=== PATIENT | male | born 1985 | race African-American/Black ===

== ENCOUNTER 2017-05-27 19:45 | Emergency (ER) | payer BC ==
[~2017-05-27] VITALS: Ht 185.4 cm; Wt 95.5 kg
[~2017-05-27 19:45] MED LIST: DICL75 PO; IBUP-232 PO; ROBA750T3 PO
[2017-05-27 19:47] VITALS: BP 154/79; PULSE 68; RESP 16; TEMP 99.4; O2SAT 99
[2017-05-27] MEDS ORDERED: OSEL75 PO (19:59)
--- NOTE | 2017-05-27 20:02 | PD ---
HPI Chief Complaint: Cold / Flu Symptoms Time Seen by Provider: 19:57 Travel History International Travel<30 days: No Contact w/Intl Traveler<30days: No Traveled to known affect area: No History of Present Illness HPI 31-year-old male presents for evaluation. For 2 days he's had congestion, sinus pressure and sneezing. Today he developed chills, fevers as high as 100.5 . There was a slight associated cough and sore throat. Denies rash, recent travel, abdominal pain, nausea or vomiting. No aggravating or relieving factors. No other complaints. PFSH Past Surgical History Other Surgery: Yes (nasal surgery) Social History Alcohol Use: Yes Tobacco Use: Yes Substance Use: No Allergies-Medications (Allergen,Severity, Reaction): Coded Allergies: No Known Allergies (Unverified , 07/01/14) Reported Meds & Prescriptions Reported Meds & Active Scripts Active Tamiflu (Oseltamivir Phosphate) 75 Mg Cap 75 Mg PO BID [address] (Diclofenac Sod) 75 Mg Tab 75 Mg PO BID PRN Robaxin-750 (Methocarbamol) 750 Mg Tab 750 Mg PO Q8 PRN FOR PAIN Motrin (Ibuprofen) 600 Mg Tab 600 Mg PO Q6 PRN Review of Systems Except as stated in HPI: all other systems reviewed are Neg Physical Exam Narrative GENERAL: Well-nourished male in no acute distress SKIN: Warm and dry. HEAD: Atraumatic. Normocephalic. EYES: Pupils equal and round. No scleral icterus. No injection or drainage. ENT: No nasal bleeding or discharge. Mucous membranes pink and moist. NECK: Trachea midline. No JVD. CARDIOVASCULAR: Regular rate and rhythm. No murmur appreciated. RESPIRATORY: No accessory muscle use. Clear to auscultation. Breath sounds equal bilaterally. Data Data Last Documented VS Vital Signs Date Time Temp Pulse Resp B/P (MAP) Pulse Ox O2 Delivery O2 Flow Rate FiO2 05/27/17 19:47 99.4 68 16 154/79 (104) 99 Orders Orders Ed Discharge Order (05/27/17 20:15) Influenzae A/B Antigen (05/27/17 20:16) MDM Medical Decision Making Medical Screen Exam Complete: Yes Emergency Medical Condition: Yes Medical Record Reviewed: Yes Differential Diagnosis Influenza, sinusitis, bronchitis, pneumonia Narrative Course His examination and history of the most consistent with influenza. He will be prescribed Tamiflu. Prior to discharge influenza antigen testing was requested and this was performed. It is negative however with the sensitivity of influenza antigen testing pain 60-70% and his abrupt onset of fevers and chills , his symptoms are still most consistent with influenza. The prescription for Tamiflu will be provided and he understands to start as soon as possible if he decides to take it. He is stable for discharge. Diagnosis Primary Impression: Upper respiratory infection Departure Forms: Tests/Procedures, Work Release Enter return to work date: May 30, 2017 Additional Instructions: Medication as prescribed. Tylenol or Motrin for fever. Stay well hydrated and well-nourished, get plenty of rest. Return for any emergent medical conditions. Med/Other Pt SpecificInfo: Prescription(s) given Scripts Oseltamivir (Tamiflu) 75 Mg Cap 75 MG PO BID for Mgmt Viral Infection for 5 Days, #10 CAP 0 Refills Prov: Toño Whiteside MD 05/27/17 Disposition: 01 DISCHARGE HOME Condition: Stable Roberto Starr May 27, 2017 20:01
== END 2017-05-27 20:55 | disposition home or self-care (01) ==
LOC: NEPK 19:45
DX: J06.9 Acute upper respiratory infection, unspecified (principal); Z72.0 Tobacco use
CPT/HCPCS: 87804; 99283

== ENCOUNTER 2017-11-23 20:56 | Observation (INO) ==
--- NOTE | 2017-11-23 22:02 | ED ---
HPI General Chief Complaint: Chest Pain Stated Complaint: chest pain Time Seen by Provider: 11/23/17 21:40 Source: patient, family and RN notes reviewed Mode of arrival: ambulatory Limitations: no limitations History of Present Illness HPI narrative: 32-year-old male presents to the emergency department for evaluation of left-sided chest pain that started 2 days ago, but became constant today. Patient reports the pain is 9/10 to the left chest without radiation. He is unsure if he has associated shortness of breath. Patient states that movement and deep breathing will worsen the pain. He denies any leg edema. No hemoptysis. No history DVT or PE. No recent surgery or travel. Patient denies any medical problems. He takes no prescribed medications. He did take a full aspirin today. Patient does report that his mother and father both have cardiac history. He denies any family history of sudden cardiac before the age of 40. He is a current tobacco user. Moderate severity. MD complaint: chest pain Complete Quality Measures for STEMI Alert Patients STEMI Alert: No Duration: constant Pain location: left chest Severity: moderate Severity scale (1-10): 9 Quality: aching Pain radiation: none Relieving factors: nothing Exacerbating factors: movement Treatments prior to arrival chest pain: aspirin Related Data Home Medications Medication Instructions Recorded Confirmed ibuprofen 1,200 mg PO DAILY 11/23/17 11/23/17 Allergies Allergy/AdvReac Type Severity Reaction Status Date / Time No Known Allergies Allergy Verified 11/23/17 21:06 Review of Systems ROS: all other systems reviewed are negative PMFSH Medical History Medical History Patient denies medical problems (Acute) Surgical History Surgical History History of nasal surgery (Acute) Social History Social History Substance History: No History of Abuse Smoking Status: Current every day smoker Tobacco Type: Cigarettes How Often Do You Have a Drink Containing Alcohol: 2 to 3 times a week Recent Travel in [facility] within the Last 8 Weeks: No Recent Out of Country Travel within the Last 8 Weeks: No Immunization History Tetanus Immunization: Unsure Hx Influenza Vaccine This Season: No Exam Narrative Exam Narrative: GENERAL: Well-nourished, well-developed male patient, afebrile SKIN: Focused skin assessment warm/dry. HEAD: Normocephalic. Atraumatic EYES: No scleral icterus. No injection or drainage. NECK: Supple, trachea midline. No JVD or lymphadenopathy. CARDIOVASCULAR: Regular rate and rhythm without murmurs, gallops, or rubs. Bilateral radial and pedal pulses 2+ RESPIRATORY: Breath sounds equal bilaterally. No accessory muscle use. Lung sounds are clear to auscultation GASTROINTESTINAL: Abdomen soft, non-tender, nondistended. MUSCULOSKELETAL: No cyanosis, or edema. BACK: Non obvious deformity. Course Initial Documented Vital Signs Temperature 98.0 F 11/23/17 21:06 Pulse Rate 69 11/23/17 21:06 Respiratory Rate 18 11/23/17 21:06 Blood Pressure 182/80 H 11/23/17 21:06 Pulse Oximetry 100 11/23/17 21:06 Last Documented Vital Signs Temperature 98.0 F 11/23/17 21:06 Pulse Rate 52 L 11/24/17 00:10 Respiratory Rate 18 11/24/17 00:10 Blood Pressure 136/76 11/24/17 00:10 Pulse Oximetry 99 11/24/17 00:10 Medical Decision Making JUAN C Attestation JUAN C supervised visit: Yes Attestation: I, Dr. Piedra, have reviewed the advance practice practitioner's documentation and am in agreement, met with the patient face to face, made the diagnosis, and the medical decision making was done by me. *My assessment and Findings: 32-year-old male presents to the emergency department for intermittent left-sided chest pain with some radiation to the left upper extremity since yesterday. Patient has history of tobacco use and premature onset heart disease in his father and mother. Patient denies personal history of hypertension dyslipidemia or diabetes. Patient states he typically uses much ibuprofen on a routine basis for muscle related pains but that the ibuprofen provided no relief or chest wall pain/chest pain. Patient has been evaluated in the past for similar type chest wall pain in the past but this was more intense and longer lives. Patient rates his discomfort 8/10 in intensity. Patient admits to tobacco use a pack per day. Patient also reports rare/occasional alcohol use. I agree with evaluation and workup and was initiated and provided by MARIANA. Physical exam reveals no acute focality and chest wall is not reproducibly tender. Specimens collected and sent for resulting patient placed on surveillance system monitor with continuous pulse oximetry patient given aspirin and sublingual nitroglycerin Patient with good response to sublingual nitroglycerin also identified to have normal d-dimer less than 0.5 and also identified to have normal first set of cardiac enzymes patient did respond to nitroglycerin with decrease chest pain no response to nonsteroidal anti-inflammatory medication Toradol. Discussed with patient risk factors for cardiac disease and agrees to admission for observation to chest pain center per protocol MDM Narrative Medical decision making narrative: 32-year-old male presents to the emergency department for evaluation of left-sided chest pain started 2 days ago, worsened today. EKG shows sinus rhythm, heart rate 60, no acute ST changes. CBC, BMP, magnesium, CK, troponin, PTT, PT/INR, chest x-ray ordered and pending. CBC is unremarkable. BMP shows elevated BUN of 19, hyperglycemia of 190. CK is 127. Troponin is less than 0.02. Magnesium is 1.7. PTT is 25.7. PT/INR is 11.4/1.1. Chest x-ray shows the lungs are clear. Patient is given nitro SL , NS 1 L IV bolus, ketorolac 30 mg IV. D-dimer is added on. Troponin will be repeated in 3 hours from first draw. My attending physician, Dr. Piedra, will resume care and disposition of patient. Medical Screen Exam Complete: Yes Emergency Medical Condition: Yes Differential Diagnosis Differential Diagnosis: ACS vs. chest wall pain vs. anxiety vs. pneumonia vs. pneumothorax Medical Records Medical records reviewed: Yes I reviewed the patient's medical records. Lab Data Result diagrams: 11/23/17 21:58 11/23/17 21:58 Lab Results 11/23/17 11/23/17 11/23/17 Range/Units 21:58 21:58 21:58 WBC 9.3 (4.0-11.0) th/mm3 RBC 5.12 (4.50-5.90) mil/mm3 Hgb 15.6 (13.0-17.0) gm/dL Hct 45.6 (39.0-51.0) % MCV 89.1 (80.0-100.0) fL MCH 30.4 (27.0-34.0) pg MCHC 34.1 (32.0-36.0) % RDW 12.7 (11.6-17.2) % Plt Count 196 (150-450) th/mm3 MPV 9.1 (7.0-11.0) fL Neut % (Auto) 57.8 (16.0-70.0) % Lymph % (Auto) 33.0 (9.0-44.0) % [place] % (Auto) 6.2 (0.0-8.0) % Eos % (Auto) 2.1 (0.0-4.0) % Baso % (Auto) 0.9 (0.0-2.0) % Neut # (Auto) 5.4 (1.8-7.7) th/mm3 Lymph # (Auto) 3.1 (1.0-4.8) th/mm3 [place] # (Auto) 0.6 (0.0-0.9) th/mm3 Eos # (Auto) 0.2 (0.0-0.4) th/mm3 Baso # (Auto) 0.1 (0.0-0.2) th/mm3 WBC Differential . Differential Comment Auto diff final PT 11.4 (9.8-11.6) sec INR 1.1 Ratio APTT 25.7 (24.3-30.1) sec D-Dimer Quant (PE/DVT) (0.00-0.50) mg/L FEU Sodium 139 (136-145) meq/L Potassium 3.6 (3.5-5.1) meq/L Chloride 104 (98-107) meq/L Carbon Dioxide 26.1 (21.0-32.0) meq/L Anion Gap 9 (5-15) meq/L BUN 19 H (7-18) mg/dL Creatinine 1.11 (0.60-1.30) mg/dL Estimated GFR Greater than 89 (>89) mL/min Random Glucose 190 H (74-106) mg/dL Calcium 9.0 (8.5-10.1) mg/dL Magnesium 1.7 (1.5-2.5) mg/dL Total Creatine Kinase 127 (39-308) U/L CK-MB (CK-2) 2.1 (0.5-3.6) ng/mL Troponin I Less than 0.02 L (0.02-0.05) ng/mL 11/23/17 Range/Units 21:58 WBC (4.0-11.0) th/mm3 RBC (4.50-5.90) mil/mm3 Hgb (13.0-17.0) gm/dL Hct (39.0-51.0) % MCV (80.0-100.0) fL MCH (27.0-34.0) pg MCHC (32.0-36.0) % RDW (11.6-17.2) % Plt Count (150-450) th/mm3 MPV (7.0-11.0) fL Neut % (Auto) (16.0-70.0) % Lymph % (Auto) (9.0-44.0) % [place] % (Auto) (0.0-8.0) % Eos % (Auto) (0.0-4.0) % Baso % (Auto) (0.0-2.0) % Neut # (Auto) (1.8-7.7) th/mm3 Lymph # (Auto) (1.0-4.8) th/mm3 [place] # (Auto) (0.0-0.9) th/mm3 Eos # (Auto) (0.0-0.4) th/mm3 Baso # (Auto) (0.0-0.2) th/mm3 WBC Differential Differential Comment PT (9.8-11.6) sec INR Ratio APTT (24.3-30.1) sec D-Dimer Quant (PE/DVT) 0.47 (0.00-0.50) mg/L FEU Sodium (136-145) meq/L Potassium (3.5-5.1) meq/L Chloride (98-107) meq/L Carbon Dioxide (21.0-32.0) meq/L Anion Gap (5-15) meq/L BUN (7-18) mg/dL Creatinine (0.60-1.30) mg/dL Estimated GFR (>89) mL/min Random Glucose (74-106) mg/dL Calcium (8.5-10.1) mg/dL Magnesium (1.5-2.5) mg/dL Total Creatine Kinase (39-308) U/L CK-MB (CK-2) (0.5-3.6) ng/mL Troponin I (0.02-0.05) ng/mL Imaging Data Radiologist's impression: Chest X-Ray 11/23/17 21:53 CONCLUSION: The lungs are clear. Discharge Plan Discharge Disposition Patient Disposition: 30 Still Patient Physicians Team ED Provider: Salter,Lisa H ED Midlevel Provider: Julita Kim Primary Care Provider: UNKNOWN, Rxs /Orders / Referrals /Forms Prescriptions: No Action ibuprofen 600 mg Tablet 1,200 mg PO DAILY RF: 0 Status ED Status: With Doctor
[2017-11-23 22:04] LABS: Baso # (Auto) 0.1 th/mm3 (0.0-0.2); Baso % (Auto) 0.9 % (0.0-2.0); Eos # (Auto) 0.2 th/mm3 (0.0-0.4); Eos % (Auto) 2.1 % (0.0-4.0); Hematocrit 45.6 % (39.0-51.0); Hemoglobin 15.6 gm/dL (13.0-17.0); Lymph # (Auto) 3.1 th/mm3 (1.0-4.8); Mean Corpuscular HGB Conc 34.1 % (32.0-36.0); Mean Corpuscular Hemoglobin 30.4 pg (27.0-34.0); Mean Corpuscular Volume 89.1 fL (80.0-100.0); Mean Platelet Volume 9.1 fL (7.0-11.0); Mono # (Auto) 0.6 th/mm3 (0.0-0.9); Mono % (Auto) 6.2 % (0.0-8.0); Neut # (Auto) 5.4 th/mm3 (1.8-7.7); Neut % (Auto) 57.8 % (16.0-70.0); Platelet Count 196 th/mm3 (150-450); Red Blood Count 5.12 mil/mm3 (4.50-5.90); Red Cell Distribution Width 12.7 % (11.6-17.2); White Blood Count 9.3 th/mm3 (4.0-11.0)
[2017-11-23 22:14] LABS: Activated Partial Thrombo Time 25.7 sec (24.3-30.1); INR 1.1 Ratio; Prothrombin Time 11.4 sec (9.8-11.6)
[2017-11-23 22:26] LABS: Anion Gap 9 meq/L (5-15); Blood Urea Nitrogen 19 mg/dL (7-18); Carbon Dioxide 26.1 meq/L (21.0-32.0); Chloride 104 meq/L (98-107); Glomerular Filtration Rate Greater Than 89 mL/min (>89); Glucose,Random 190 mg/dL (74-106); Magnesium 1.7 mg/dL (1.5-2.5); Sodium 139 meq/L (136-145)
[2017-11-23] MEDS ORDERED: Sod Chloride 0.9% Inj 1,000 ML IV.SIG ONE (22:26)
[2017-11-23] MEDS ORDERED: Ketorolac Inj 30 MG/ML (IVP) Vial IV.PUSH ONE (22:27)
[2017-11-23 22:30] LABS: Creatine Kinase 127 U/L (39-308)
[2017-11-23 22:31] LABS: Potassium 3.6 meq/L (3.5-5.1)
[2017-11-23 22:43] LABS: Creatine Kinase MB 2.1 ng/mL (0.5-3.6)
--- NOTE | 2017-11-23 22:51 | XR ---
EXAM DATE: 11/23/2017 10:41 PM EDT AGE/SEX: 32 years / Male INDICATIONS: Chest pain. CLINICAL DATA: This is the patient's initial encounter. Patient reports that signs and symptoms have been present for 2 days and indicates a pain score of 9/10. MEDICAL/SURGICAL HISTORY: None. None. COMPARISON: [facility] [place], CHEST PA & LAT, 11/09/2014. . FINDINGS: A single AP view of the chest demonstrates the lungs to be symmetrically aerated without evidence of mass, infiltrate or effusion. The cardiomediastinal contours are unremarkable. Osseous structures a re intact. CONCLUSION: The lungs are clear. Electronically signed by: Brayan Pineda MD 11/23/2017 10:50 PM EDT
[2017-11-24 01:43] LABS: Creatine Kinase 100 U/L (39-308)
[2017-11-24 05:09] LABS: Creatine Kinase 87 U/L (39-308)
--- NOTE | 2017-11-24 07:38 | P.HPCA ---
History of Present Illness Primary Care Physician: None Chief Complaint: Chest pain History of Present Illness: 32 year old male current smoker presents to ER for further evaluation of chest pain. Onset yesterday morning. Location left anterior chest. Characterized as "ache." Mild to moderate in severity. No radiation. Duration all day eating discomfort was "just there." No associated symptoms of nausea, vomiting , dyspnea, or diaphoresis. No precipitating factors. Relieving factors included activity, "sitting made discomfort tolerable." Denies similar pain in the past. Last evening developed bilateral hands and fingertip tingling. encouraged him to come the ER for further evaluation. No known significant past medical history. No recent illness or injury. Family history positive for early onset cardiovascular disease. Father [place] in his early 40s. No past cardiac testing. - Diagnosis (1) Atypical chest pain (2) Tobacco abuse (3) Elevated serum glucose Review of Systems All other systems reviewed negative except as stated in HPI PMFSH - History History Provided By: Patient, Family Member - Medical History Medical History: Medical History (Last Reviewed 11/24/17 @ 08:44 by LINDA Bone) Patient denies medical problems - Surgical History Surgical History: Surgical History (Last Reviewed 11/24/17 @ 08:44 by LINDA Bone) History of nasal surgery - Family History Family History: Family History (Last Updated 11/24/17 @ 08:46 by LINDA Bone) Father Coronary artery disease Mother Takotsubo syndrome - Tobacco History Tobacco Use In Past 30 Days: Yes Smoking Status: Current every day smoker Tobacco Type: Cigarettes Packs Per Day: 1 - Alcohol History How Often Do You Have a Drink Containing Alcohol: 2 to 3 times a week - Substance Use History Substance History: No History of Abuse - Travel History Recent Travel in the [place] Within the Last 8 Weeks: No Recent Travel Out of the Country Within the Last 8 Weeks: No - Immunization History Tetanus Immunization: Unsure Hx Influenza Vaccine This Season: No Medications and Allergies Active Medications: Active Medications Sodium Chloride (Ns Flush) 2 ml IV.FLUSH UNSCH PRN PRN Reason: FLUSH AFTER USING IV ACCESS Sodium Chloride (Ns Flush) 2 ml IV.FLUSH BID ALMA Sodium Chloride (Ns Flush) 2 ml IV.FLUSH PRN PRN PRN Reason: FLUSH AFTER USING IV ACCESS Allergies Allergy/AdvReac Type Severity Reaction Status Date / Time No Known Allergies Allergy Verified 11/23/17 21:06 Home Medications Medication Instructions Recorded Confirmed Type ibuprofen 1,200 mg PO DAILY 11/23/17 11/23/17 History Exam Vital signs: Vital Signs 11/23/17 21:06 11/23/17 22:00 11/24/17 00:10 Temperature 98.0 F Pulse Rate 69 52 L Respiratory Rate 18 18 Blood Pressure 182/80 H 136/76 Pulse Oximetry 100 98 99 11/24/17 03:39 11/24/17 07:33 Temperature 98.0 F 98.0 F Pulse Rate 48 L 62 Respiratory Rate 22 18 Blood Pressure 132/86 141/89 H Pulse Oximetry 99 98 Intake & Output 11/23/17 11/24/17 11/24/17 18:59 06:59 18:59 Intake Total 1000 / 1000 Balance 1000 / 1000 Weight 92.986 kg Intake: IV 1000 / 1000 NS Inj 1,000 ML @ Wide Open IV. 1000 / 1000 SIG BOLUS ONE Rx#:[id number] Narrative: GENERAL: Alert WN, WD, NAD, pleasant, -[place] male HEAD: NC, AT EYES: Sclera clear, conjunctiva without injection, pupils equal and round ENT: Mucous membranes pink and moist NECK: Supple, no masses, trachea midline CV: RRR, without murmur, rub, or gallop. RESP: Clear lungs throughout bilateral, no crackles, wheeze, rhonchi, symmetrical chest rise, nonlabored, able to speak in full sentences ABD: Soft, NT, ND, no masses, positive bowel tones EXT: Pulses +2x4, no dependent edema MS: Normal tone x4 extremities, nontender, no obvious deformities, full range of motion NEURO: CN II through CN XII grossly intact, motor strength 5/5 PSYCH: A+O x3, pleasant affect, appropriate speech, mood, insight and judgment SKIN: Normal turgor, normal texture, no lesions, no rashes, brisk cap refill, even hair distribution Results 11/23/17 21:58 11/23/17 21:58 Cardiac Enzymes 11/23/17 11/24/17 11/24/17 Range/Units 21:58 01:00 04:37 CK-MB (CK-2) 2.1 (0.5-3.6) ng/mL Troponin I Less than 0.02 L Less than 0.02 L Less than 0.02 L (0.02-0.05) ng/mL Coagulation 11/23/17 Range/Units 21:58 PT 11.4 (9.8-11.6) sec APTT 25.7 (24.3-30.1) sec CBC 11/23/17 Range/Units 21:58 WBC 9.3 (4.0-11.0) th/mm3 RBC 5.12 (4.50-5.90) mil/mm3 Hgb 15.6 (13.0-17.0) gm/dL Hct 45.6 (39.0-51.0) % Plt Count 196 (150-450) th/mm3 Neut # (Auto) 5.4 (1.8-7.7) th/mm3 Lymph # (Auto) 3.1 (1.0-4.8) th/mm3 [place] # (Auto) 0.6 (0.0-0.9) th/mm3 Eos # (Auto) 0.2 (0.0-0.4) th/mm3 Baso # (Auto) 0.1 (0.0-0.2) th/mm3 Comprehensive Metabolic Panel 11/23/17 Range/Units 21:58 Sodium 139 (136-145) meq/L Potassium 3.6 (3.5-5.1) meq/L Chloride 104 (98-107) meq/L Carbon Dioxide 26.1 (21.0-32.0) meq/L BUN 19 H (7-18) mg/dL Creatinine 1.11 (0.60-1.30) mg/dL Calcium 9.0 (8.5-10.1) mg/dL Intake and Output 11/23/17 11/24/17 11/24/17 22:59 06:59 14:59 Intake Total 1000 / 1000 Balance 1000 / 1000 Intake: IV 1000 / 1000 NS Inj 1,000 ML @ Wide Open IV. 1000 / 1000 SIG BOLUS ONE Rx#:[id number] Other: Weight 92.986 kg EKG interpretations - EKG EKG results cardiology: sinus rhythm, normal axis, normal QRS, normal ST/T Caprini VTE Risk Assessment Caprini VTE Risk Assessment: No/Low Risk (score <= 1) Caprini Risk Assessment Model: Point Value = 1 Point Value = 2 Point Value = 3 Point Value = 5 Age 41-60 Minor surgery BMI > 25 kg/m2 Swollen legs Varicose veins or History of unexplained or recurrent spontaneous Oral contraceptives or hormone replacement Sepsis (< 1 month) Serious lung disease, including pneumonia (< 1 month) Abnormal pulmonary function Acute myocardial infarction Congestive heart failure (< 1 month) History of inflammatory bowel disease Medical patient at bed rest Age 61-74 Arthroscopic surgery Major open surgery (> 45 min) Laparoscopic surgery (> 45 min) Malignancy Confined to bed (> 72 hours) Immobilizing plaster cast Central venous access Age >= 75 History of VTE Family history of VTE Factor V Leiden Prothrombin [id number] Lupus anticoagulant Anticardiolipin antibodies Elevated serum homocysteine Heparin-induced thrombocytopenia Other congenital or acquired thrombophilia Stroke (< 1 month) Elective arthroplasty Hip, pelvis, or leg fracture Acute spinal cord injury (< 1 month) Prophylaxis Regimen: Total Risk Factor Score Risk Level Prophylaxis Regimen 0-1 Low Early ambulation 2 Moderate Order ONE of the following: *Sequential Compression Device (SCD) *Heparin 5000 units SQ BID 3-4 Higher Order ONE of the following medications: *Heparin 5000 units SQ TID *Enoxaparin/Lovenox 40 mg SQ daily (WT < 150 kg, CrCl > 30 mL/min) *Enoxaparin/Lovenox 30 mg SQ daily (WT < 150 kg, CrCl > 10-29 mL/min) *Enoxaparin/Lovenox 30 mg SQ BID (WT < 150 kg, CrCl > 30 mL/min) AND/OR *Sequential Compression Device (SCD) 5 or more Highest Order ONE of the following medications: *Heparin 5000 units SQ TID (Preferred with Epidurals) *Enoxaparin/Lovenox 40 mg SQ daily (WT < 150 kg, CrCl > 30 mL/min) *Enoxaparin/Lovenox 30 mg SQ daily (WT < 150 kg, CrCl > 10-29 mL/min) *Enoxaparin/Lovenox 30 mg SQ BID (WT < 150 kg, CrCl > 30 mL/min) AND *Sequential Compression Device (SCD) Assessment and Plan - Assessment (1) Atypical chest pain Code(s): R07.89 - Other chest pain Status: Acute Plan: Admitted chest pain center. ACS ruled out 3 sets of EKGs and cardiac enzymes. Seen and evaluated by Dr. Colt Frank. Proceed with exercise cardiac stress testing this morning. If unremarkable, plans are to discharge home with follow- up with PCP. Verbalized understanding and agreeable to plan of care. (2) Tobacco abuse Code(s): Z72.0 - Tobacco use Status: Chronic Plan: Strongly encouraged and stressed importance of tobacco cessation. Instructed to quit smoking. (3) Elevated serum glucose Code(s): R73.9 - Hyperglycemia, unspecified Status: Acute Plan: Made aware of elevated glucose of 190. Recommended follow up, establishing with a primary care provider for further surveillance.
[2017-11-24 08:28] VITALS: O2SAT 100
[2017-11-24 10:00] VITALS: BP 131/63; RESP 20; TEMP 97.7
[2017-11-24 10:40] VITALS: PULSE 59
--- NOTE | 2017-11-24 14:23 | ECG ---
Date Performed: 11/24/2017 Time Performed: 04:47:21 PTAGE: 32 years EKG: SINUS BRADYCARDIA BORDERLINE ECG PREVIOUS TRACING : 11/24/2017 01.02 Since previous tracing, no significant change noted DOCTOR: Colt Frank Interpretating Date/Time 11/24/2017 14:22:02
--- NOTE | 2017-11-24 14:24 | ECG ---
Date Performed: 11/24/2017 Time Performed: 01:02:34 PTAGE: 32 years EKG: SINUS BRADYCARDIA BORDERLINE ECG PREVIOUS TRACING : 11/23/2017 21.29 Since previous tracing, no significant change noted DOCTOR: Colt Frank Interpretating Date/Time 11/24/2017 14:23:53
--- NOTE | 2017-11-24 14:26 | ECG ---
Date Performed: 11/23/2017 Time Performed: 21:29:32 PTAGE: 32 years EKG: Sinus rhythm POSSIBLE LEFT ATRIAL ENLARGEMENT BORDERLINE ECG PREVIOUS TRACING : 11/09/2014 15.34 Since previous tracing, no significant change noted DOCTOR: Colt Frank Interpretating Date/Time 11/24/2017 14:24:46
--- NOTE | 2017-11-24 14:34 | TR ---
Date Performed: 11/24/2017 Time Performed: 09:34:01 DOCTOR: Colt Frank DRUG LIST: CLINICAL HISTORY: REASON FOR TEST: REASON FOR ENDING: OBSERVATION: CONCLUSION: Ernesto protocol completed. Stopped sec to reaching target heart rate and leg fatigue. Maximum PA=900 Max HR Achieved=85.0% Maximum CJ=380/70 Total Exercise Time=11:01. No reprod chest di scomfort. Rare PVC. Upsloping st segments. Hypertensive response. Great exercise tolerance. Recovery quick and unremarkable. COMMENTS: Patient exercised using the Ernesto protocol. No electrocardiographic changes were seen to suggest ischemia. Hemodynamic response to exercise was normal. No significant arrhythmia was prese nt.
== END 2017-11-24 10:59 | disposition home or self-care (01) ==
LOC: NEPC 20:56 → NEDA 20:56 → NEPFCDU 20:56